=== PATIENT | female | born 1960 | race African-American/Black ===

== ENCOUNTER 2020-03-07 06:19 | Emergency (ER) | payer BC ==
[~2020-03-07] VITALS: Ht 157.5 cm; Wt 100.0 kg
[~2020-03-07 06:19] MED LIST: HYDR-2761 PO; HYDR-3164 PO
[2020-03-07 06:40] VITALS: BP 201/99
[2020-03-07] MEDS ORDERED: ERYT1OIN6 OP (07:02)
--- NOTE | 2020-03-07 07:02 | PHYS DOC ---
Past Medical History Past Medical History: Diabetes-Type II, Hypertension Additional Past Medical Histor: HIGH CHOLESTEROL Past Surgical History: Smoking Status: Current Every Day Smoker Alcohol Use: Occasionally Drug Use: None General Adult EDM: Chief Complaint: EYE PROBLEMS HPI: HPI: Patient is a 60 year old female presented to the ER for evaluation of right lower eye lid swelling and pain since yesterday. She woke up this morning and noted her right eyelid matted with crusted discharged so she came here for evaluation. Review of Systems: Review of Systems: Constitutional: Denies fever or chills. [] Eyes: Denies change in visual acuity. Positive for right eyelid swelling HENT: Denies nasal congestion or sore throat. [] Respiratory: Denies cough or shortness of breath. [] Cardiovascular: Denies chest pain or edema. [] GI: Denies abdominal pain, nausea, vomiting, bloody stools or diarrhea. [] : Denies dysuria. [] Musculoskeletal: Denies back pain or joint pain. [] Integument: Denies rash. [] Neurologic: Denies headache, focal weakness or sensory changes. [] Endocrine: Denies polyuria or polydipsia. [] Lymphatic: Denies swollen glands. [] Psychiatric: Denies depression or anxiety. [] Heart Score: Risk Factors: Risk Factors: DM, Current or recent (<one month) smoker, HTN, HLP, family history of CAD, obesity. Risk Scores: Score 0 - 3: 2.5% MACE over next 6 weeks - Discharge Home Score 4 - 6: 20.3% MACE over next 6 weeks - Admit for Clinical Observation Score 7 - 10: 72.7% MACE over next 6 weeks - Early Invasive Strategies Allergies: Allergies: Allergies Coded Allergies Type Severity Reaction Last Updated Verified No Known Drug Allergies 03/07/20 No Physical Exam: PE: Constitutional: Well developed, well nourished, no acute distress, non-toxic appearance. [] HENT: Normocephalic, atraumatic, bilateral external ears normal, oropharynx moist, no oral exudates, nose normal. [] Eyes: PERRLA, EOMI, conjunctiva normal, no discharge. Right lower eye lid on the lateral part with a small lesion, tender, consistent with an external hordeolum. Neurologic: Alert and oriented X 3, normal motor function, normal sensory function, no focal deficits noted. [] Psychologic: Affect normal, judgement normal, mood normal. [] Current Patient Data: Vital Signs: Vital Signs Date Time Temp Pulse Resp B/P (MAP) Pulse Ox O2 Delivery O2 Flow Rate FiO2 03/07/20 06:40 98.2 57 16 201/99 (133) 97 Room Air 98.2 EKG: EKG: [] Radiology/Procedures: Radiology/Procedures: [] Course & Med Decision Making: Course & Med Decision Making Pertinent Labs and Imaging studies reviewed. (See chart for details) [] Dragon Disclaimer: Dragon Disclaimer: This electronic medical record was generated, in whole or in part, using a voice recognition dictation system. Departure Departure Impression: Primary Impression: Sty, external Disposition: HOME, SELF-CARE Condition: STABLE Referrals: WILFREDO GONZALEZ DO (PCP) Fadia POOL MD please call this eye doctor for follow up next week. Patient Instructions: Josie Additional Instructions: Thank you for visiting our Emergency Department. We appreciate you trusting us with your care. If any additional problems come up don't hesitate to return to visit us. Please follow up with your primary care provider so they can plan additional care if needed and know about the problem that you had. If symptoms worsen come back to the Emergency Department. Any concerning symptoms that start such as chest pain, shortness of air, weakness or numbness on one side of the body, running high fevers or any other concerning symptoms return to the ER. Scripts Erythromycin Base (Erythromycin) 1 Gm Oint...g. 1 GM OP TID for sty for 7 Days, #1 MISC Prov: TREMAYNE BERKOWITZ DO 03/07/20 Justicifation of Admission Dx: Justifications for Admission: Justification of Admission Dx: N/A TREMAYNE BERKOWITZ DO Mar 07, 2020 07:02
== END 2020-03-07 07:18 | disposition home or self-care (01) ==
LOC: ER 06:19
DX: H00.012 Hordeolum externum right lower eyelid (principal); E11.9 Type 2 diabetes mellitus without complications; I10 Essential (primary) hypertension; E78.00 Pure hypercholesterolemia, unspecified; F17.200 Nicotine dependence, unspecified, uncomplicated
CPT/HCPCS: 99283